=== PATIENT | male | born 2000 | race Caucasian/White ===

== ENCOUNTER 2023-04-14 17:54 | Emergency (ER) | payer OTHER ==
[~2023-04-14] VITALS: Ht 175.3 cm; Wt 70.8 kg
[2023-04-14 20:09] VITALS: BP 118/86; TEMP 97.8; O2SAT 100
== END 2023-04-14 20:10 | disposition home or self-care (01) ==
LOC: ER 17:56
DX: S30.815A Abrasion of unspecified external genital organs, male, initial encounter (principal); X58.XXXA Exposure to other specified factors, initial encounter; Y93.89 Activity, other specified; Y92.89 Other specified places as the place of occurrence of the external cause; Y99.8 Other external cause status
CPT/HCPCS: A4606; A4663